=== PATIENT | male | born 1990 | race African-American/Black ===

== ENCOUNTER 2020-09-25 17:41 | Inpatient (IN) | payer MEDICAID ==
[~2020-09-25] VITALS: Ht 167.6 cm; Wt 64.0 kg
[2020-09-25 17:57] VITALS: BP 127/78
[2020-09-25 21:56] LABS: BASO % 0.7 % (0.0-1.0); EOS # 0.2 10*3/uL (0.0-0.4); EOS % 3.5 % (1.0-4.0); HEMATOCRIT 42.3 % (42.0-52.0); LYMPH # 2.4 10*3/uL (1.3-4.4); LYMPH % 41.6 % (27.0-41.0); MEAN CELL VOLUME 89.4 fl (80.0-94.0); MEAN CORPUSCULAR HGB 29.2 pg (27.0-31.0); MEAN CORPUSCULAR HGB CONC 32.6 g/dl (33.0-37.0); MEAN PLATELET VOLUME 10.2 fl (9.6-12.3); MONO # 0.5 10*3/uL (0.1-1.0); MONO % 7.9 % (3.0-9.0); NEUT # 2.7 10*3/uL (2.3-7.9); NEUT % 46.1 % (47.0-73.0); PLATELET COUNT AUTOMATED 256 10*3/uL (130-400); RED BLOOD COUNT 4.73 10*6/uL (4.50-5.90); RED CELL DISTRI WIDTH 13.3 % (0-14.5); WHITE BLOOD COUNT 5.8 10*3/uL (4.8-10.8)
[2020-09-25 22:10] LABS: INTERNATIONAL NORM RATIO 0.9 (2.0-3.5)
[2020-09-25 22:11] LABS: ALBUMIN 3.4 gm/dl (3.1-4.5); ALKALINE PHOSPHATASE 58 U/L (45-117); BUN 10 mg/dl (7-24); CHLORIDE 107 mmol/L (98-107); CREATININE 1.13 mg/dL (0.70-1.30); SGOT/AST 10 IU/L (3-35); SGPT/ALT 15 U/L (12-78); SODIUM 141 mmol/L (136-145); TOTAL PROTEIN 7.4 gm/dL (6.4-8.2)
[2020-09-25 22:30] LABS: ETHYL ALCOHOL < 3.0 mg/dl (<3)
[2020-09-25 23:30] VITALS: BP 126/73
[2020-09-25 23:42] LABS: BILIRUBIN Negative (Negative); BLOOD Negative (Negative); CLARITY Clear (Clear); COLOR Yellow (Yellow); GLUCOSE Negative (Negative); KETONE Negative (Negative); LEUKO ESTERASE Negative (Negative); NITRITE Negative (Negative)
[2020-09-25 23:50] LABS: URINE AMPHETAMINES < 1000 (1000ng/ml); URINE BARBITURATES < 200 (200ng/ml); URINE BENZODIAZEPINES < 200 (200ng/ml); URINE CANNABINOIDS (THC) < 50 (50ng/ml); URINE COCAINE < 300 (300ng/ml); URINE METHADONE < 300 (300ng/ml); URINE OPIATES < 300 (300ng/ml)
[2020-09-25 23:52] LABS: URINE PHENCYCLIDINE < 25 (25ng/ml)
[2020-09-26] VITALS: BP 126/73
[2020-09-26 00:01] LABS: BACTERIA TRACE; RBC 0-2 rbc/hpf (0-2)
[2020-09-26 04:00] VITALS: BP 122/70
[2020-09-26 08:00] VITALS: BP 106/58
[2020-09-26 16:00] VITALS: BP 110/60
[2020-09-26 20:00] VITALS: BP 127/78
[2020-09-27] VITALS: BP 121/71
[2020-09-27 08:00] VITALS: BP 104/65
[2020-09-27 12:00] VITALS: BP 119/64
[2020-09-27 16:00] VITALS: BP 132/75
[2020-09-27 20:00] VITALS: BP 117/70
[2020-09-28] VITALS: BP 110/69
[2020-09-28 06:33] LABS: BASO % 0.9 % (0.0-1.0); EOS # 0.2 10*3/uL (0.0-0.4); EOS % 4.9 % (1.0-4.0); HEMATOCRIT 43.2 % (42.0-52.0); LYMPH % 46.5 % (27.0-41.0); MEAN CELL VOLUME 89.4 fl (80.0-94.0); MEAN CORPUSCULAR HGB 28.8 pg (27.0-31.0); MEAN CORPUSCULAR HGB CONC 32.2 g/dl (33.0-37.0); MEAN PLATELET VOLUME 10.1 fl (9.6-12.3); MONO # 0.5 10*3/uL (0.1-1.0); MONO % 10.4 % (3.0-9.0); NEUT # 1.6 10*3/uL (2.3-7.9); NEUT % 37.1 % (47.0-73.0); PLATELET COUNT AUTOMATED 232 10*3/uL (130-400); RED BLOOD COUNT 4.83 10*6/uL (4.50-5.90); RED CELL DISTRI WIDTH 12.8 % (0-14.5); WHITE BLOOD COUNT 4.3 10*3/uL (4.8-10.8)
[2020-09-28 06:45] LABS: CREATININE 0.98 mg/dL (0.70-1.30)
[2020-09-28 08:00] VITALS: BP 126/82
[2020-09-28] MEDS ORDERED: ATARAX,VISTARIL50 MG PO (09:55)
[2020-09-28] MEDS ORDERED: ZOFRAN 4 MG ED2 TAB PO (09:55)
== END 2020-09-28 11:45 | disposition home or self-care (01) | DRG 773 ==
LOC: ED 17:41 → 4E 21:18 → EDHOLD 21:18 → 4E 22:55
PROVIDERS: Internal Medicine; ADMIT Internal Medicine; ATTEND Internal Medicine
DX: F11.23 Opioid dependence with withdrawal (principal); D64.9 Anemia, unspecified; F17.210 Nicotine dependence, cigarettes, uncomplicated; F41.9 Anxiety disorder, unspecified; Z71.6 Tobacco abuse counseling